=== PATIENT | male | born 1945 | race Caucasian/White ===

== ENCOUNTER 2019-10-06 09:15 | Outpatient (CLI) | payer MEDICARE, OTHER | END 2019-10-06 23:59 | disposition home or self-care (01) | LOC: LAB 09:15 | PROVIDERS: ATTEND Internal Medicine Gastroenterology | DX: D12.0 Benign neoplasm of cecum (principal); D12.3 Benign neoplasm of transverse colon; D12.4 Benign neoplasm of descending colon; K62.1 Rectal polyp; Z80.0 Family history of malignant neoplasm of digestive organs | CPT/HCPCS: 36415; 82378 ==

== ENCOUNTER 2019-10-27 05:19 | Day surgery (SDC) | payer MEDICARE, OTHER ==
[~2019-10-27] VITALS: Ht 180.3 cm; Wt 98.7 kg
[2019-10-27 06:30] VITALS: BP 144/99
== END 2019-10-27 07:30 | disposition home or self-care (01) ==
LOC: OUT 05:19
PROVIDERS: ATTEND Internal Medicine Gastroenterology
DX: Z01.818 Encounter for other preprocedural examination (principal)
CPT/HCPCS: 93005

== ENCOUNTER → 2019-11-04 | Outpatient (CLI) | payer MEDICARE, OTHER | END | disposition home or self-care (01) | LOC: RAD 10:39 | PROVIDERS: ATTEND Surgery | DX: C20 Malignant neoplasm of rectum (principal); E04.1 Nontoxic single thyroid nodule | CPT/HCPCS: 76536 ==

== ENCOUNTER → 2019-11-18 | Outpatient (CLI) | payer MEDICARE, OTHER | END | disposition home or self-care (01) | LOC: ROC 08:45 | PROVIDERS: ATTEND Radiology Radiation Oncology | DX: C18.7 Malignant neoplasm of sigmoid colon (principal); E07.9 Disorder of thyroid, unspecified | CPT/HCPCS: G0463 ==

== ENCOUNTER 2019-12-29 08:01 | Outpatient (CLI) | payer MEDICARE, OTHER | END 2019-12-29 23:59 | disposition home or self-care (01) | LOC: ROC 08:01 | PROVIDERS: ATTEND Radiology Radiation Oncology | DX: C20 Malignant neoplasm of rectum (principal) | CPT/HCPCS: G0463 ==

== ENCOUNTER 2020-02-14 12:28 | Outpatient (CLI) | payer MEDICARE, OTHER ==
[~2020-02-14 12:28] MED LIST: LIDOCAINE-MPF 1%, 5ML ONE
== END 2020-02-14 23:59 | disposition home or self-care (01) ==
LOC: RAD 12:28
PROVIDERS: ATTEND Surgery
DX: E04.1 Nontoxic single thyroid nodule (principal); E07.9 Disorder of thyroid, unspecified; E78.5 Hyperlipidemia, unspecified; Z85.038 Personal history of other malignant neoplasm of large intestine; Z98.890 Other specified postprocedural states; Z79.82 Long term (current) use of aspirin; Z87.891 Personal history of nicotine dependence
CPT/HCPCS: 10005; 88172; 88173

== ENCOUNTER 2020-03-09 07:26 | Outpatient (CLI) | payer MEDICARE, OTHER | END 2020-03-09 23:59 | disposition home or self-care (01) | LOC: ROC 07:26 | PROVIDERS: ATTEND Radiology Radiation Oncology | DX: Z09 Encounter for follow-up examination after completed treatment for conditions other than malignant neoplasm (principal); Z85.048 Personal history of other malignant neoplasm of rectum, rectosigmoid junction, and anus; Z92.3 Personal history of irradiation | CPT/HCPCS: G0463 ==

== ENCOUNTER → 2020-04-10 | Outpatient (CLI) | payer MEDICARE, OTHER ==
[~2020-04-10] MED LIST changes: -LIDOCAINE-MPF 1%, 5ML ONE; +OMNIPAQUE 350 MG/ML, 100ML BOTTLE ONE
== END | disposition home or self-care (01) ==
LOC: CFH 10:17
PROVIDERS: ATTEND Radiology Radiation Oncology
DX: C20 Malignant neoplasm of rectum (principal); J84.9 Interstitial pulmonary disease, unspecified; E07.9 Disorder of thyroid, unspecified; I72.3 Aneurysm of iliac artery; Z95.1 Presence of aortocoronary bypass graft
CPT/HCPCS: 71260; 74160; Q9967

== ENCOUNTER 2020-04-12 08:50 | Outpatient (CLI) | payer MEDICARE, OTHER | END 2020-04-12 23:59 | disposition home or self-care (01) | LOC: ROC 08:50 | PROVIDERS: ATTEND Radiology Radiation Oncology | DX: C20 Malignant neoplasm of rectum (principal); Z95.1 Presence of aortocoronary bypass graft; Z92.3 Personal history of irradiation | CPT/HCPCS: G0463 ==

== ENCOUNTER → 2020-08-02 | Outpatient (CLI) | payer MEDICARE, OTHER | END | disposition home or self-care (01) | LOC: CFH 09:08 | PROVIDERS: ATTEND Radiology Radiation Oncology | DX: C20 Malignant neoplasm of rectum (principal); J84.9 Interstitial pulmonary disease, unspecified; E07.9 Disorder of thyroid, unspecified | CPT/HCPCS: 71260; 74177; Q9967 ==

== ENCOUNTER → 2020-08-22 | Outpatient (CLI) | payer MEDICARE, OTHER | END | disposition home or self-care (01) | LOC: ROC 07:15 | PROVIDERS: ATTEND Radiology Radiation Oncology | DX: C20 Malignant neoplasm of rectum (principal); E07.9 Disorder of thyroid, unspecified | CPT/HCPCS: G0463 ==

== ENCOUNTER → 2020-11-01 | Outpatient (CLI) | payer MEDICARE, OTHER | END | disposition home or self-care (01) | LOC: ROC 07:31 | PROVIDERS: ATTEND Radiology Radiation Oncology | DX: Z08 Encounter for follow-up examination after completed treatment for malignant neoplasm (principal); Z85.048 Personal history of other malignant neoplasm of rectum, rectosigmoid junction, and anus | CPT/HCPCS: G0463 ==